=== PATIENT | female | born 1935 | race American Indian/Alaskan Native ===

== ENCOUNTER 2019-03-28 11:48 | Emergency (ER) | payer MEDICARE ==
--- NOTE | 2019-03-28 12:19 | Emergency Department Report ---
Blank Doc - Documentation Documentation: 84 y old female presents with vertigo and some disoriented x 2 weeks was sent here by her PCP pleasent , speaking well labs MAin side Rm 1
[2019-03-28 12:43] LABS: Basophils % (Auto) 1.3 % (0.0-1.8); Eosinophils # (Auto) 0.1 K/mm3 (0.0-0.4); Hematocrit 35.4 % (30.3-42.9); Hemoglobin 11.6 gm/dl (10.1-14.3); Lymphocytes # (Auto) 1.1 K/mm3 (1.2-5.4); Lymphocytes % (Auto) 29.6 % (13.4-35.0); Mean Corpuscular HGB Conc 33 % (30-34); Mean Corpuscular Volume 81 fl (79-97); Monocytes # (Auto) 0.5 K/mm3 (0.0-0.8); Monocytes % (Auto) 14.5 % (0.0-7.3); Platelet Count 159 K/mm3 (140-440); Red Blood Count 4.36 M/mm3 (3.65-5.03); Red Cell Distribution Width 16.3 % (13.2-15.2)
--- NOTE | 2019-03-28 13:21 | XRay Report ---
AP CHEST: HISTORY: Hypertension AP view of the chest demonstrates a normal mediastinal and cardiac contour with clear lungs and normal bony and soft tissue structures. IMPRESSION: Unremarkable AP chest.
--- NOTE | 2019-03-28 13:30 | Emergency Department Report ---
ED General Adult HPI - General Chief complaint: Altered Mental Status Stated complaint: DIZZY/WEAK/DISORIENTED Time Seen by Provider: 03/28/19 12:11 Source: family Mode of arrival: Ambulatory Limitations: Altered Mental Status - History of Present Illness Initial comments: This is an 84-year-old female who presents to the emergency department well oriented and understanding the context of her visit. Apparently she was sent by her family physician for an altered mental status workup. However the patient is not altered on arrival. She can recount her medical history with a good deal of clarity. 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 The patient tells me that she still drives. She does admit to brief periods of confusion. She states that she has had occasional vertigo over the last probably several months. She is able to answer to a extended review of systems. She does have some chronic issues to include about 25 pounds of weight loss over a year. She states that she has some feelings of urinary retention and periodic urgency. She also states that she occasionally has fecal incontinence. She is really not complaining of any active symptomatology at the time of my encounter. -: Gradual, week(s), month(s) Improves with: other (no acute pain complaint) Associated Symptoms: denies other symptoms, confusion Treatments Prior to Arrival: none - Related Data Allergies Allergy/AdvReac Type Severity Reaction Status Date / Time No Known Allergies Allergy Verified 03/28/19 12:18 ED Review of Systems ROS: Stated complaint: DIZZY/WEAK/DISORIENTED Other details as noted in HPI Constitutional: denies: chills, fever Eyes: denies: eye pain, eye discharge, vision change ENT: denies: ear pain, throat pain Respiratory: denies: cough, shortness of breath, wheezing Cardiovascular: denies: chest pain, palpitations Endocrine: no symptoms reported Gastrointestinal: denies: abdominal pain, nausea, diarrhea Genitourinary: denies: urgency, dysuria, discharge Musculoskeletal: denies: back pain, joint swelling, arthralgia Skin: denies: rash, lesions Neurological: confusion. denies: headache, weakness, numbness, paresthesias, abnormal gait Psychiatric: denies: anxiety, depression Hematological/Lymphatic: denies: easy bleeding, easy bruising ED Past Medical Hx - Past Medical History Previous Medical History?: Yes Hx Hypertension: Yes Hx Diabetes: Yes - Surgical History Past Surgical History?: Yes Additional Surgical History: cardiac stent - Social History Smoking Status: Never Smoker Substance Use Type: None ED Physical Exam - General Limitations: No Limitations General appearance: alert, in no apparent distress - Head Head exam: Present: atraumatic, normocephalic - Eye Eye exam: Present: normal appearance, PERRL, EOMI. Absent: scleral icterus - ENT ENT exam: Present: mucous membranes moist - Neck Neck exam: Present: normal inspection - Respiratory Respiratory exam: Present: normal lung sounds bilaterally. Absent: respiratory distress - Cardiovascular Cardiovascular Exam: Present: regular rate, normal rhythm. Absent: systolic murmur, diastolic murmur, rubs, gallop - GI/Abdominal GI/Abdominal exam: Present: soft, normal bowel sounds. Absent: distended, tend erness, guarding, rebound, rigid - Extremities Exam Extremities exam: Present: normal inspection - Back Exam Back exam: Present: normal inspection - Neurological Exam Neurological exam: Present: alert, oriented X3, CN II-XII intact. Absent: motor sensory deficit - Psychiatric Psychiatric exam: Present: normal affect, normal mood - Skin Skin exam: Present: warm, dry, intact, normal color. Absent: rash ED Course Vital Signs 03/28/19 03/28/19 03/28/19 11:58 12:16 12:48 Temperature 97.9 F 97.9 F Pulse Rate 72 72 Respiratory 16 16 14 Rate Blood Pressure 133/60 Blood Pressure 133/60 [Right] O2 Sat by Pulse 100 100 99 Oximetry ED Medical Decision Making - Lab Data Result diagrams: 03/28/19 12:39 03/28/19 12:39 Laboratory Results - last 24 hr 03/28/19 03/28/19 03/28/19 12:39 12:39 12:39 WBC 3.7 L RBC 4.36 Hgb 11.6 Hct 35.4 MCV 81 MCH 27 L MCHC 33 RDW 16.3 H Plt Count 159 Lymph % (Auto) 29.6 Coal % (Auto) 14.5 H Eos % (Auto) 3.0 Baso % (Auto) 1.3 Lymph # 1.1 L Coal # 0.5 Eos # 0.1 Baso # 0.0 Seg Neutrophils % 51.6 Seg Neutrophils # 1.9 Sodium 139 Potassium 4.5 Chloride 102.9 Carbon Dioxide 22 Anion Gap 19 BUN 36 H Creatinine 1.4 H Estimated GFR 43 BUN/Creatinine Ratio 26 Glucose 91 Lactic Acid 0.70 Calcium 10.0 Laboratory Results - last 24 hr 03/28/19 03/28/19 03/28/19 12:39 12:39 12:39 WBC 3.7 L RBC 4.36 Hgb 11.6 Hct 35.4 MCV 81 MCH 27 L MCHC 33 RDW 16.3 H Plt Count 159 Lymph % (Auto) 29.6 Coal % (Auto) 14.5 H Eos % (Auto) 3.0 Baso % (Auto) 1.3 Lymph # 1.1 L Coal # 0.5 Eos # 0.1 Baso # 0.0 Seg Neutrophils % 51.6 Seg Neutrophils # 1.9 PT INR APTT Sodium 139 Potassium 4.5 Chloride 102.9 Carbon Dioxide 22 Anion Gap 19 BUN 36 H Creatinine 1.4 H Estimated GFR 43 BUN/Creatinine Ratio 26 Glucose 91 Lactic Acid 0.70 Calcium 10.0 Magnesium Total Bilirubin Direct Bilirubin AST ALT Alkaline Phosphatase Ammonia NT-Pro-B Natriuret Pep Total Protein Albumin Albumin/Globulin Ratio TSH Free T4 03/28/19 03/28/19 03/28/19 13:14 13:14 13:14 WBC RBC Hgb Hct MCV MCH MCHC RDW Plt Count Lymph % (Auto) Coal % (Auto) Eos % (Auto) Baso % (Auto) Lymph # Coal # Eos # Baso # Seg Neutrophils % Seg Neutrophils # PT 13.1 INR 0.94 APTT 26.8 Sodium Potassium Chloride Carbon Dioxide Anion Gap BUN Creatinine Estimated GFR BUN/Creatinine Ratio Glucose Lactic Acid Calcium Magnesium 2.20 Total Bilirubin 0.30 Direct Bilirubin < 0.2 AST 19 ALT 11 Alkaline Phosphatase 45 Ammonia 34.0 NT-Pro-B Natriuret Pep 755.3 Total Protein 8.0 Albumin 4.8 Albumin/Globulin Ratio 1.5 TSH Free T4 03/28/19 13:14 WBC RBC Hgb Hct MCV MCH MCHC RDW Plt Count Lymph % (Auto) Coal % (Auto) Eos % (Auto) Baso % (Auto) Lymph # Coal # Eos # Baso # Seg Neutrophils % Seg Neutrophils # PT INR APTT Sodium Potassium Chloride Carbon Dioxide Anion Gap BUN Creatinine Estimated GFR BUN/Creatinine Ratio Glucose Lactic Acid Calcium Magnesium Total Bilirubin Direct Bilirubin AST ALT Alkaline Phosphatase Ammonia NT-Pro-B Natriuret Pep Total Protein Albumin Albumin/Globulin Ratio TSH 0.469 Free T4 1.42 Laboratory Results - last 24 hr 03/28/19 03/28/19 03/28/19 12:39 12:39 12:39 WBC 3.7 L RBC 4.36 Hgb 11.6 Hct 35.4 MCV 81 MCH 27 L MCHC 33 RDW 16.3 H Plt Count 159 Lymph % (Auto) 29.6 Coal % (Auto) 14.5 H Eos % (Auto) 3.0 Baso % (Auto) 1.3 Lymph # 1.1 L Coal # 0.5 Eos # 0.1 Baso # 0.0 Seg Neutrophils % 51.6 Seg Neutrophils # 1.9 PT INR APTT Sodium 139 Potassium 4.5 Chloride 102.9 Carbon Dioxide 22 Anion Gap 19 BUN 36 H Creatinine 1.4 H Estimated GFR 43 BUN/Creatinine Ratio 26 Glucose 91 Lactic Acid 0.70 Calcium 10.0 Magnesium Total Bilirubin Direct Bilirubin AST ALT Alkaline Phosphatase Ammonia NT-Pro-B Natriuret Pep Total Protein Albumin Albumin/Globulin Ratio TSH Free T4 03/28/19 03/28/19 03/28/19 13:14 13:14 13:14 WBC RBC Hgb Hct MCV MCH MCHC RDW Plt Count Lymph % (Auto) Coal % (Auto) Eos % (Auto) Baso % (Auto) Lymph # Coal # Eos # Baso # Seg Neutrophils % Seg Neutrophils # PT 13.1 INR 0.94 APTT 26.8 Sodium Potassium Chloride Carbon Dioxide Anion Gap BUN Creatinine Estimated GFR BUN/Creatinine Ratio Glucose Lactic Acid Calcium Magnesium 2.20 Total Bilirubin 0.30 Direct Bilirubin < 0.2 AST 19 ALT 11 Alkaline Phosphatase 45 Ammonia 34.0 NT-Pro-B Natriuret Pep 755.3 Total Protein 8.0 Albumin 4.8 Albumin/Globulin Ratio 1.5 TSH Free T4 03/28/19 13:14 WBC RBC Hgb Hct MCV MCH MCHC RDW Plt Count Lymph % (Auto) Coal % (Auto) Eos % (Auto) Baso % (Auto) Lymph # Coal # Eos # Baso # Seg Neutrophils % Seg Neutrophils # PT INR APTT Sodium Potassium Chloride Carbon Dioxide Anion Gap BUN Creatinine Estimated GFR BUN/Creatinine Ratio Glucose Lactic Acid Calcium Magnesium Total Bilirubin Direct Bilirubin AST ALT Alkaline Phosphatase Ammonia NT-Pro-B Natriuret Pep Total Protein Albumin Albumin/Globulin Ratio TSH 0.469 Free T4 1.42 Laboratory Results - last 24 hr 03/28/19 03/28/19 03/28/19 12:39 12:39 12:39 WBC 3.7 L RBC 4.36 Hgb 11.6 Hct 35.4 MCV 81 MCH 27 L MCHC 33 RDW 16.3 H Plt Count 159 Lymph % (Auto) 29.6 Coal % (Auto) 14.5 H Eos % (Auto) 3.0 Baso % (Auto) 1.3 Lymph # 1.1 L Coal # 0.5 Eos # 0.1 Baso # 0.0 Seg Neutrophils % 51.6 Seg Neutrophils # 1.9 PT INR APTT Sodium 139 Potassium 4.5 Chloride 102.9 Carbon Dioxide 22 Anion Gap 19 BUN 36 H Creatinine 1.4 H Estimated GFR 43 BUN/Creatinine Ratio 26 Glucose 91 Lactic Acid 0.70 Calcium 10.0 Magnesium Total Bilirubin Direct Bilirubin AST ALT Alkaline Phosphatase Ammonia NT-Pro-B Natriuret Pep Total Protein Albumin Albumin/Globulin Ratio TSH Free T4 Urine Color Urine Turbidity Urine pH Ur Specific [place] Urine Protein Urine Glucose (UA) Urine Ketones Urine Blood Urine Nitrite Urine Bilirubin Urine Urobilinogen Ur Leukocyte Esterase Urine WBC (Auto) Urine RBC (Auto) U Epithel Cells (Auto) Urine Bacteria (Auto) Urine Mucus 03/28/19 03/28/19 03/28/19 13:14 13:14 13:14 WBC RBC Hgb Hct MCV MCH MCHC RDW Plt Count Lymph % (Auto) Coal % (Auto) Eos % (Auto) Baso % (Auto) Lymph # Coal # Eos # Baso # Seg Neutrophils % Seg Neutrophils # PT 13.1 INR 0.94 APTT 26.8 Sodium Potassium Chloride Carbon Dioxide Anion Gap BUN Creatinine Estimated GFR BUN/Creatinine Ratio Glucose Lactic Acid Calcium Magnesium 2.20 Total Bilirubin 0.30 Direct Bilirubin < 0.2 AST 19 ALT 11 Alkaline Phosphatase 45 Ammonia 34.0 NT-Pro-B Natriuret Pep 755.3 Total Protein 8.0 Albumin 4.8 Albumin/Globulin Ratio 1.5 TSH Free T4 Urine Color Urine Turbidity Urine pH Ur Specific [place] Urine Protein Urine Glucose (UA) Urine Ketones Urine Blood Urine Nitrite Urine Bilirubin Urine Urobilinogen Ur Leukocyte Esterase Urine WBC (Auto) Urine RBC (Auto) U Epithel Cells (Auto) Urine Bacteria (Auto) Urine Mucus 03/28/19 03/28/19 13:14 Unknown WBC RBC Hgb Hct MCV MCH MCHC RDW Plt Count Lymph % (Auto) Coal % (Auto) Eos % (Auto) Baso % (Auto) Lymph # Coal # Eos # Baso # Seg Neutrophils % Seg Neutrophils # PT INR APTT Sodium Potassium Chloride Carbon Dioxide Anion Gap BUN Creatinine Estimated GFR BUN/Creatinine Ratio Glucose Lactic Acid Calcium Magnesium Total Bilirubin Direct Bilirubin AST ALT Alkaline Phosphatase Ammonia NT-Pro-B Natriuret Pep Total Protein Albumin Albumin/Globulin Ratio TSH 0.469 Free T4 1.42 Urine Color Yellow Urine Turbidity Clear Urine pH 5.0 Ur Specific [place] 1.019 Urine Protein <15 mg/dl Urine Glucose (UA) Neg Urine Ketones Neg Urine Blood Neg Urine Nitrite Neg Urine Bilirubin Neg Urine Urobilinogen < 2.0 Ur Leukocyte Esterase Tr Urine WBC (Auto) 3.0 Urine RBC (Auto) 3.0 U Epithel Cells (Auto) 1.0 Urine Bacteria (Auto) 1+ Urine Mucus Few - EKG Data -: EKG Interpreted by Me EKG shows normal: sinus rhythm, axis, intervals, QRS complexes, ST-T waves Rate: bradycardia (borderline at 58) - EKG Data Interpretation: no acute changes - Radiology Data Radiology results: report reviewed (chest x-ray no acute process) IMPRESSION: White matter foci of low attenuation likely secondary to chronic ischemic gliosis. 1 small focus of deep white matter hypodensity extends inferiorly into the anterior superior aspect of the left basal ganglia. Differential includes subacute ischemia or ischemic infarct. - Medical Decision Making In review the patient's CT findings, I do not think she would benefit from hospitalization. She will be advised to take aspirin. She will be referred to a neurologist. She is advised not to drive pending further evaluation with a neurologist. She is asymptomatic at the time of discharge. She is given IV fl uids and consideration of her prerenal azotemia. She admits that her by mouth intake was little today and probably for a while. Her NIH stroke score is 0. Acute stroke is not suspected. Critical care attestation.: If time is entered above; I have spent that time in minutes in the direct care of this critically ill patient, excluding procedure time. ED Disposition Clinical Impression: Mental status change resolved, Volume depletion Change in mental status Qualifiers: Altered mental status type: disorientation Qualified Code(s): R41.0 - Disorient ation, unspecified Disposition: DC-01 TO HOME OR SELFCARE Is pt being admited?: No Does the pt Need Aspirin: No Condition: Stable Additional Instructions: I would recommend that you take aspirin every day if her not particularly doing so. Further evaluation with a neurologist as recommended. See referral number. It would be best not to drive until the neurologist gives you to go ahead. You were somewhat dehydrated. He needs to increase her fluid intake. See her [facility] doctor tomorrow if possible for ongoing evaluation. Referrals: KOKO FERNANDO MD [Staff Physician] - 2-3 Days PRIMARY CARE, [Primary Care Provider] - 24 Hours Time of Disposition: 15:43
[2019-03-28] MEDS ORDERED: NACL 0.9% 1000 ML 1,000 ML IV ONE (13:33)
[2019-03-28 13:41] LABS: INR 0.94 (0.87-1.13)
[2019-03-28 13:42] LABS: Partial Thromboplastin Time 26.8 Sec. (24.2-36.6)
[2019-03-28 13:49] LABS: Alanine Aminotransferase 11 units/L (7-56); Albumin 4.8 g/dL (3.9-5)
[2019-03-28 13:52] LABS: Bilirubin,Direct < 0.2 mg/dL (0-0.2)
[2019-03-28 14:00] LABS: Free T4 (Free Thyroxine) 1.42 ng/dL (0.76-1.46)
--- NOTE | 2019-03-28 14:45 | Cat Scan Report ---
PROCEDURE: CT HEAD/BRAIN WO CON TECHNIQUE: Computerized tomography of the head was performed without contrast material. CT DOSE LENGTH PRODUCT: 920.5 mGycm HISTORY: AMS COMPARISONS: None . FINDINGS: Scattered small polyps and/or retention cysts in the maxillary and ethmoid sinuses. No acute air-fluid level visualized in the included air-filled sinuses. Bone windows demonstrate no acute fracture. There is ventricular and sulcal prominence compatible with age-appropriate global cerebrocortical atr ophy. Low attenuation regions in the cerebral white matter, while nonspecific, are present and usually attr ibuted to chronic ischemic gliosis. 1 small focus of deep white matter hypodensity extends inferiorly into the anterior superior aspect of the left basal ganglia. The brain contains no mass, mass effect, hemorrhage. There is no extra-axial intracranial bleed or brain bleed. There is no midline shift. IMPRESSION: White matter foci of low attenuation likely secondary to chronic ischemic gliosis. 1 small focus of d eep white matter hypodensity extends inferiorly into the anterior superior aspect of the left basal g [place]. Differential includes subacute ischemia or ischemic infarct. Recommend follow-up brain MRI to further characterize, in the appropriate clinical setting This document is electronically signed by Vahe Cadet MD., Mar 28 2019 02:44:04 PM ET
[2019-03-28 15:36] LABS: Bacteria,Urine 1+ /HPF (Negative); Bilirubin,Urine NEG (Negative); Blood,Urine NEG (Negative); Color,Urine Yellow (Yellow); Mucus,Urine FEW /HPF; Protein,Urine <15 mg/dL mg/dL (Negative); Urobilinogen,Urine < 2.0 mg/dL (<2.0)
[2019-03-28 16:21] VITALS: BP 147/73
== END 2019-03-28 17:33 | disposition home or self-care (01) ==
LOC: ED 11:48
DX: R41.0 Disorientation, unspecified (principal); E86.9 Volume depletion, unspecified; I10 Essential (primary) hypertension; E11.9 Type 2 diabetes mellitus without complications
CPT/HCPCS: 36415; 70450; 71045; 80048; 80076; 81001; 82140; 83735; 83880; 84439; 84443; 85025; 85610; 85730; 93005; 93010; 96360; 96361; 99284; J7030